=== PATIENT | female | born 1940 ===

== ENCOUNTER → 2023-01-14 11:01 | Outpatient (BNVA) | payer MEDICARE, SELFPAY | PROVIDERS: Visit Provider Podiatrist Foot & Ankle Surgery | DX: B35.1 Tinea unguium (principal); M20.12 Hallux valgus (acquired), left foot; M20.11 Hallux valgus (acquired), right foot; M20.41 Other hammer toe(s) (acquired), right foot; M20.42 Other hammer toe(s) (acquired), left foot; M21.6X2 Other acquired deformities of left foot; M21.6X1 Other acquired deformities of right foot | CPT/HCPCS: 99204 ==